=== PATIENT | male | born 1935 | race Caucasian/White ===

== ENCOUNTER 2018-12-21 20:02 | Inpatient (IN) | payer MEDICARE, OTHER ==
[~2018-12-21] VITALS: Ht 188 cm; Wt 96.3 kg
[2018-12-21] MEDS ORDERED: normal saline 1000ML IV soln IVB ONE (20:10)
[2018-12-21 20:47] LABS: CLARITY,URINE CLEAR (Clear); COLOR,URINE YELLOW (Yellow); GLUCOSE, URINE NEGATIVE (Neg); KETONES,URINE NEGATIVE (Neg); LEUKOCYTE ESTERASE ,URINE NEGATIVE (Neg); NITRITES, URINE NEGATIVE (Neg); OCCULT BLOOD,URINE NEGATIVE (Neg); PROTEIN,URINE NEGATIVE (Neg); UROBILINOGEN,URINE 0.2 E.U/dL (0.2-1.0)
[2018-12-21 20:48] LABS: UA COLLECTION TYPE CLN CATCH MIDSTREAM
[2018-12-21 20:53] LABS: URINE AMPHETAMINE SCREEN NEGATIVE (Neg); URINE BARBITUATE SCREEN NEGATIVE (Neg); URINE BENZODIAZEPINES SCREEN NEGATIVE (Neg); URINE CANNABINOID SCREEN NEGATIVE (Neg); URINE COCAINE SCREEN NEGATIVE (Neg); URINE METHADONE SCREEN NEGATIVE (Neg); URINE OPIATE SCREEN NEGATIVE (Neg); URINE PHENCYCLIDINE SCREEN NEGATIVE (Neg)
[2018-12-21 21:16] LABS: BASOPHILS % (AUTO) 0.5 % (0-1); EOSINOPHILS % (AUTO) 0.3 % (0-6); HEMATOCRIT 38.6 % (42.0-52.0); HEMOGLOBIN 12.8 g/dl (14.0-17.9); LYMPHOCYTES # (AUTO) 0.9 X10'3 (1.1-4.8); MEAN CORPUSCULAR HEMOGLOBIN 29.9 PG (27.0-31.0); MEAN CORPUSCULAR HGB CONC 33.2 g/dL (33.0-36.5); MEAN CORPUSCULAR VOLUME 90.2 FL (78-98); MONOCYTES # (AUTO) 0.5 X10'3 (0-0.9); MONOCYTES % (AUTO) 8.6 % (2-12); NEUTROPHILS # (AUTO) 4.8 X10'3 (1.8-7.7); NEUTROPHILS % (AUTO) 76.6 % (42-75); PLATELET COUNT 157 X10'3 (140-440); RED BLOOD COUNT 4.28 X10'6 (4.70-6.10); RED CELL DISTRIBUTION WIDTH 14.6 % (11.5-14.5); WHITE BLOOD COUNT 6.3 X10'3 (4.5-11.0)
[2018-12-21 21:24] LABS: AMMONIA < 10 UMOL/L (11-32)
[2018-12-21 21:27] LABS: LACTIC SEPSIS 1.7 MMOL/L (0.4-2.0); PROTHROMBIN TIME 10.4 SECONDS (9.0-12.0)
[2018-12-21 21:33] LABS: ALANINE AMINOTRANSFERASE 14 U/L (12-78); ALBUMIN 3.7 G/DL (3.4-5.0); ALBUMIN/GLOBULIN RATIO 1.1 (1.1-1.5); ANION GAP 9 (8-16); ASPARTATE AMINO TRANSFERASE 29 U/L (10-37); BILIRUBIN,TOTAL 0.6 MG/DL (0.1-1.0); BLOOD UREA NITROGEN 32 MG/DL (7-18); BUN/CREATININE RATIO 27.4 (5.4-32.0); CALCIUM 8.5 MG/DL (8.5-10.1); CHLORIDE 106 MMOL/L (99-107); CREATININE 1.17 MG/DL (0.60-1.10); ETHANOL < 0.010 GM/DL (0.0-0.010); GLUCOSE 95 MG/DL (70-104); POTASSIUM 4.2 MMOL/L (3.5-5.1); SODIUM 141 MMOL/L (135-145); TOTAL CARBON DIOXIDE 26.3 MMOL/L (24-32); TROPONIN I 0.04 NG/ML (0.0-0.05); eGFR 59 ML/MIN
[2018-12-21 21:39] LABS: ALKALINE PHOSPHATASE 77 IU/L (46-116)
[2018-12-21] MEDS ORDERED: ondansetron/PF 4mg/2ml inj IV PRN (21:50)
[2018-12-21] MEDS ORDERED: morphine 4 MG/ML inj SYRINge IV PRN ×2 (21:50)
[2018-12-21] MEDS ORDERED: magnesium hydroxide 30ml (MOM) UD suspension PO PRN (21:50)
[2018-12-21] MEDS ORDERED: acetaminophen 325mg tablet PO PRN ×2 (21:50)
[2018-12-21] MEDS ORDERED: mag hydrox/Alum hydrox/simeth 30ml oral suspension PO PRN (21:50)
[2018-12-21] MEDS: dextrose 5%-1/2 normal saline 1,000 ML IV SCH (22:36)
--- NOTE | 2018-12-21 22:55 | NUR ---
PATIENT ARRIVED ON UNIT VIA GURNEY. PATIENT AMBULATED TO BED. FLUIDS RUNNING. ON TELE. VITALS STABLE. PATIENT CONFUSED. DID NOT KNOW WHERE HE WAS AT OR HOW HE GOT HERE. BELONGINGS AT BEDSIDE.
[2018-12-21 23:45] VITALS: BP 132/82
--- NOTE | 2018-12-22 06:07 | NUR ---
PATIENT REPORT GIVEN TO ROSSY OROZCO.
[2018-12-22 06:10] VITALS: BP 121/69
--- NOTE | 2018-12-22 06:43 | NUR ---
I HAVE RECEIVED PATIENT REPORT FROM AKANKSHA Cruz RN
[2018-12-22] MEDS: dextrose 5%-1/2 normal saline 1,000 ML IV SCH (08:18)
[2018-12-22 09:16] LABS: ALBUMIN 3.4 G/DL (3.4-5.0); ANION GAP 5 (8-16); BLOOD UREA NITROGEN 23 MG/DL (7-18); BUN/CREATININE RATIO 20.5 (5.4-32.0); CALCIUM 8.4 MG/DL (8.5-10.1); CHLORIDE 105 MMOL/L (99-107); CREATININE 1.12 MG/DL (0.60-1.10); GLUCOSE 81 MG/DL (70-104); POTASSIUM 4.1 MMOL/L (3.5-5.1); SODIUM 139 MMOL/L (135-145); TOTAL CARBON DIOXIDE 29.1 MMOL/L (24-32); eGFR 62 ML/MIN
[2018-12-22 10:00] VITALS: BP 135/65
[2018-12-22] MEDS: Potassium Cl inj 20 MEQ in normal saline 1000ml 990 ML IV SCH (16:34)
[2018-12-22] MEDS: enoxaparin 40mg/0.4ml syringe SUBCUT SCH (16:48)
--- NOTE | 2018-12-22 17:00 | NUR ---
Student Medication Administration: For this medication-pass time frame, all medication were reviewed, dispensed, administered and documented per hospital policy by Renea Chu
[2018-12-22 18:00] VITALS: BP 139/70
--- NOTE | 2018-12-22 18:42 | NUR ---
PATIENT REPORT RECEIVED FROM ROSSY OROZCO.
--- NOTE | 2018-12-22 18:45 | NUR ---
I gave patient report to Ami Cruz RN
--- NOTE | 2018-12-22 18:48 | NUR ---
I found patient had walked to the bathroom on his own, he had taken the TABS alarm off and disconnected his iv at this time. I walked him back to his room and he stumbled and almost fell to the floor. I paged housekeeping and he is going to be moved to 4018 once the room is cleaned and placed on a bed alarm bed.
--- NOTE | 2018-12-22 20:19 | NUR ---
Patient moved to 4018 for safety and placed on bed alarm bed and 2 TABS alarms placed on him also. He has been orientated to his new room and all of his belongings moved with him.
[2018-12-22 22:00] VITALS: BP 124/73
[2018-12-23] MEDS: Potassium Cl inj 20 MEQ in normal saline 1000ml 990 ML IV SCH ×2 (05:43→08:56)
[2018-12-23 06:10] VITALS: BP 133/63
--- NOTE | 2018-12-23 06:10 | NUR ---
Patient in room ORTHO 4018. I have received report from Ami Cruz RN and had the opportunity to ask questions and assume patient care.
--- NOTE | 2018-12-23 06:26 | NUR ---
PATIENT REPORT GIVEN TO ROSSY OROZCO.
[2018-12-23 07:00] LABS: ALBUMIN 3.1 G/DL (3.4-5.0); ANION GAP 7 (8-16); BLOOD UREA NITROGEN 20 MG/DL (7-18); BUN/CREATININE RATIO 15.9 (5.4-32.0); CALCIUM 8.3 MG/DL (8.5-10.1); CHLORIDE 107 MMOL/L (99-107); CREATININE 1.26 MG/DL (0.60-1.10); GLUCOSE 85 MG/DL (70-104); POTASSIUM 4.1 MMOL/L (3.5-5.1); SODIUM 141 MMOL/L (135-145); TOTAL CARBON DIOXIDE 26.8 MMOL/L (24-32); eGFR 55 ML/MIN
[2018-12-23] MEDS: enoxaparin 40mg/0.4ml syringe SUBCUT SCH (08:56)
[2018-12-23 10:00] VITALS: BP 127/66
[2018-12-23] MEDS ORDERED: donepezil 5mg tablet PO SCH (15:55)
--- NOTE | 2018-12-23 18:00 | NUR ---
I arrived to the floor and discovered that patient is wanting to leave AMA and that security had been at pt's bedside for about an hour per the day staff. Patient does not have suicide precautions or a hold that would not allow him to leave on his own. I verified the 1798 order with the night nursing sulfuric acid plant supervisor; Memo last night and asked if that meant we had to have a sitter and I was told that patient is " gravely disabled " that is where the 1798 order is coming from. I called the day nursing sulfuric acid plant supervisor today to let her know what the situation was in regards to patient wanting to leave; and that security and staff during the day and at change of shift was unable to convince the patient to stay on the floor. I also informed Bebe that he had a 1798 order. Patient is already dressed and standing in the doorway wanting to leave now. Bebe OROZCO nursing sulfuric acid plant supervisor informed me that we can't hold patient against his will and that we have to let him leave but to call [employer] to inform them so they can meet him at hospital and bring him back through the ER for evaluation. I called [employer] and gave them the patient's pertinent information and what we needed done for patient's safety. The officer told me that he would send someone to hospital as soon as possible. Security walked the patient down to lobby around 1830 this evening and they were going to have him get his belongings on the way from front tender.
--- NOTE | 2018-12-23 18:39 | NUR ---
PATIENT REPORT RECEIVED FROM ROSSY OROZCO.
--- NOTE | 2018-12-23 18:39 | NUR ---
Patient report given to Ami Cruz RN. Patient left and is currently downstairs possibly with security or [employer].
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
[2018-12-24] MEDS ORDERED: NO HOME MEDS (10:24)
== END 2018-12-23 18:30 | disposition left against medical advice (07) | DRG 72 ==
LOC: ER 20:03 → ED HOLD 21:48 → EDBEDREQ 23:06 → ORTHO 4S 23:30 → OBSVTOIN 12-23 14:27
PROVIDERS: ADMIT Internal Medicine; ATTEND Internal Medicine
DX: G93.40 Encephalopathy, unspecified (principal); I35.0 Nonrheumatic aortic (valve) stenosis; F03.90 Unspecified dementia, unspecified severity, without behavioral disturbance, psychotic disturbance, mood disturbance, and anxiety; E78.5 Hyperlipidemia, unspecified; I10 Essential (primary) hypertension; E86.0 Dehydration; Z53.21 Procedure and treatment not carried out due to patient leaving prior to being seen by health care provider
CPT/HCPCS: 36415; 70450; 71045; 80048; 80053; 80305; 80320; 81003; 82140; 82948; 83605; 84439; 84443; 84484; 85025; 85610; 87040; 87070; 93005; 93306; 96360; 96361; 96372; 97116; 97161; 97530; 99285; G0378; J1650; J3480; J7030

== ENCOUNTER 2018-12-23 20:14 | Emergency (ER) | payer MEDICARE, OTHER ==
[~2018-12-23] VITALS: Ht 188 cm; Wt 100.0 kg
--- NOTE | 2018-12-23 22:19 | NUR ---
PT belongings inventoried. $100 bill found in wallet. Registration contacted for secure items lockup. Wallet placed in speciman bag with PT sticker and placed under wall safe in ED OF.
--- NOTE | 2018-12-23 22:45 | NUR ---
telepsych consult initiated
--- NOTE | 2018-12-23 22:53 | NUR ---
daughter number obtained from previous visit: [phone] Manuela Sweet, apparently she has not been answering the phone other info obtained to pass along: apparently in 2009, neuro consult has been done
--- NOTE | 2018-12-23 23:47 | NUR ---
Packet faxed to [facility].
--- NOTE | 2018-12-24 01:13 | NUR ---
Pt sitting up in bed, states that he is going to put his clothes on. Pt reoriented to time. Pt states that he didn't realize this and will go back to sleep now. No further requests or c/o.
--- NOTE | 2018-12-24 02:36 | NUR ---
PT valuables secured with registration. Reciept taped to PT binder.
--- NOTE | 2018-12-24 06:26 | NUR ---
Nursing Note: Pt laying in bed on R side, respirations even and unlabored, no S&S of distress.
[2018-12-24] MEDS ORDERED: haloperidol lactate 5mg/ml inj IM ONE (07:25)
[2018-12-24] MEDS ORDERED: LORazepam 2 mg/ml vial IM ONE (07:25)
[2018-12-24] MEDS ORDERED: diphenhydrAMINE 50 mg/ml inj IM ONE (07:25)
--- NOTE | 2018-12-24 08:08 | NUR ---
Nursing Note: Pt up wanting to leave asking for clothes. Repeatedly trying to go into other patients' areas. Pt redirected, but he was unwilling to return to bed. Pt stated that he does not want to talk to doctors. Pt refused to talk to telepsych Notified Dr. Eduardo, he evaluated pt and ordered medications. Security stood by while the pt willingly accepted the IM medications. Pt not sitting up to eat breakfast. Will continue to monitor.
--- NOTE | 2018-12-24 09:00 | NUR ---
Nursing Note: Telepsych report received, Dr. Eduardo ordered RPR, B12, and thiamine level labs on the patient. Will continue to monitor.
--- NOTE | 2018-12-24 10:01 | NUR ---
Nursing Note: Pt laying in bed on back sleeping, respirations even and unlabored, no S&S of distress, will continue to monitor.
[2018-12-24] MEDS ORDERED: NO HOME MEDS (10:24)
--- NOTE | 2018-12-24 11:11 | NUR ---
pt attempting to walk around, he has an unsteady gait, advised him to return to his bed. he was hesitant, security assisted in getting the pt back to bed.
--- NOTE | 2018-12-24 11:37 | NUR ---
Nursing Note: Pt laying in bed, respirations even and unlabored, no S&S of distress, will continue to monitor.
--- NOTE | 2018-12-24 14:01 | NUR ---
Nursing Note: Paged social contact worker that pt needs discharge plan. Pt unable to formulate a plan for food, clothing, [facility]. No family available. [facility] declined to place pt on 5150 hold. Will continue to monitor.
--- NOTE | 2018-12-24 15:54 | NUR ---
Nursing Note: Pt laying on R side, eyes closed, respirations even and unlabored, no S&S of distress, will continue to monitor.
--- NOTE | 2018-12-24 18:12 | NUR ---
Nursing Note: Pt laying on L side, eyes closed, respirations even and unlabored, no S&S of distress, will continue to monitor.
--- NOTE | 2018-12-24 20:04 | NUR ---
elopement censor placed on right ankle
--- NOTE | 2018-12-25 09:53 | NUR ---
Pt. woke up and ate breakfast.
--- NOTE | 2018-12-25 11:34 | NUR ---
Pt. lying in bed on right side. Respirations even and unlabored.
--- NOTE | 2018-12-25 17:53 | NUR ---
Hiren PARKER talking with pt. now.
--- NOTE | 2018-12-25 20:00 | NUR ---
PT expresses concern that he is going to . PT talks about how his is really not , but they are . Refers to hospital unit as "house" and says he "feels bad" about his impending .
--- NOTE | 2018-12-25 20:50 | NUR ---
pt denies sucidial ideation. pt denies homicidal ideation. pt denies hallucinations. pt denies hearing voices but says "only good voices" will continue to monitor.
[2018-12-25] MEDS ORDERED: haloperidol 1mg tablet PO PRN (22:50)
[2018-12-25] MEDS: LORazepam 0.5 MG tablet PO PRN (22:57)
--- NOTE | 2018-12-26 00:03 | NUR ---
pt laying to his right side. resting, eyes closed. no signs of distressed. even and unlabored breathing. will continue to monitor
--- NOTE | 2018-12-26 00:39 | NUR ---
Pt asleep left side. RR 13, even and unlabored. No apparent distress at this time. Hollis provided.
--- NOTE | 2018-12-26 02:11 | NUR ---
pt sleeping on his right side. no signs of distress. will continue to monitor.
--- NOTE | 2018-12-26 04:59 | NUR ---
pt resting, eyes closed. no signs of distress. unlabored and even breathing. will continue to monitor.
[2018-12-26] MEDS: LORazepam 0.5 MG tablet PO PRN (07:07)
--- NOTE | 2018-12-26 07:28 | NUR ---
Pt. wandering around in unit. Appears slightly agitated. Ativan given per MR order. Pt. took meds willingly.
--- NOTE | 2018-12-26 08:35 | NUR ---
Pt. was observed to stumble and fall, apparently hitting his head on the floor. Small pool of blood noted on floor. Abrasion noted to back of head. No LOC noted. Vital signs obtained after fall. VSS. Pt. was thought to stuble and get caught on curtain that divides the beds. Abrasion noted to right middle knuckle. ER director and Dr. Horne notified. Pt. assisted to wheelchair. Will continue to monitor. Awaiting orders from Dr. Horne.
--- NOTE | 2018-12-26 08:55 | NUR ---
Dr. Horne here to assess pt. Orders received. Security camera footage reviewed. Pt. was seen standing at bedside, drinking coffee before stumbling into curtain and patient's bedside table and eventually falling onto ground, striking his head at 8:24:54 am.
[2018-12-26] MEDS ORDERED: TETanus/Pertussis (Acell)/Diphther VAC/PF (Tdap-Adult) 0.5ml syringe IM ONE (09:00)
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
--- NOTE | 2018-12-26 10:08 | NUR ---
Pt. attempting to get OOB despite staff constantly reminding pt. to stay in bed.
--- NOTE | 2018-12-26 10:13 | NUR ---
Pressure dressing applied to back of head wound as wound is oozing onto pillow case. Pt. given urinal to use.
--- NOTE | 2018-12-26 12:30 | NUR ---
Sitter at bedside.
--- NOTE | 2018-12-26 13:07 | NUR ---
Pt. has 1:1 sitter since pt. fell earlier this shift.
--- NOTE | 2018-12-26 17:10 | NUR ---
Pt. becoming agitated and combative. Refusing to stay in bed. Medicated with Haldol PO.
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
--- NOTE | 2018-12-26 19:30 | NUR ---
Patient is very anxious and parinoid, had a fall today and has a laceration to back of head. He is unsteady on his feet and won't follow direction. He becomes very aggitated when directed and has the potential to become violent. Per Dr. Walker he will order Geodon 10mg IM now.
[2018-12-26] MEDS ORDERED: ziprasidone IM 20mg inj **IM only IM ONE (19:50)
--- NOTE | 2018-12-26 20:04 | NUR ---
Patient was given Geodon 10mg, security at bedside for noncompliance.
[2018-12-27 07:14] LABS: RPR Non Reactive (Non Reactive)
--- NOTE | 2018-12-27 18:50 | NUR ---
GAVE REPORT TO PAM FRANCO
--- NOTE | 2018-12-27 19:58 | NUR ---
PATIENT RESTING IN BED. LIGHTS OFF. PATIENT HAS AMBULATED TO AND FROM BATHROOM TWICE IN THE PAST HOUR. PATIENT HAVING DELUSIONS REGARDING WHERE HE CURRENTLY IS.
--- NOTE | 2018-12-27 20:40 | NUR ---
Patient resting in bed. Patient has ambulated to bathroom twice in last hour. Patient is confused regarding where he is.
--- NOTE | 2018-12-27 23:17 | NUR ---
Patient sleeping in bed. No new concerns or needs at this time. Will continue to monitor.
--- NOTE | 2018-12-28 01:02 | NUR ---
Patient sleeping. No needs or concerns at this time. Will continue to monitor.
--- NOTE | 2018-12-28 02:48 | NUR ---
Patient sleeping. No changes.
--- NOTE | 2018-12-28 05:16 | NUR ---
Patient sleeping. No changes.
--- NOTE | 2018-12-28 08:19 | NUR ---
PT SITTING UP AT BEDSIDE EATING BREAKFAST NOW.
[2018-12-28] MEDS: LORazepam 0.5 MG tablet PO PRN ×2 (09:08→17:29)
[2018-12-28] MEDS: ziprasidone IM 20mg inj **IM only IM PRN (09:08)
--- NOTE | 2018-12-28 09:50 | NUR ---
PT WAS WALKING AROUND WITH STEADY GAIT PT WAS GOING TO RESTRICTED AREA SO REDIRECTED PT TO RETURN TO BED, PT WAS AGREEABLE TO REQUEST AND RETURN TO BED.
--- NOTE | 2018-12-28 12:36 | NUR ---
RELIEVING RN FOR LUNCH, PT IS RESTING QUIETLY ON BED, AWAKE, CALM AND COOPERATIVE
--- NOTE | 2018-12-28 12:52 | NUR ---
PT AMB WITH SLIGHTLY UNSTEADY GAIT TO RESTROOM, DIRECTOR TRANSLATIONAL ASSISTED PT WITH WALKER
[2018-12-28] MEDS ORDERED: ibuprofen tablet 400 MG TABLET PO PRN (14:00)
--- NOTE | 2018-12-28 15:10 | NUR ---
BRYAN PROVIDING FOOT CARE, GIVING PT BED BATH, TRIMMED PT HAIR AND TRIMMED PT TOENAILS, PT ALSO PLACED IN NEW ED GREEN SCRUBS.
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
--- NOTE | 2018-12-28 16:51 | NUR ---
[facility] WILL FAX CHART OVER TO [facility] THEY WILL START AND INVESTIGATION AND WILL NEED PROVIDER TO GIVE RESULTS OF MENTAL STATUS EXAM, THIS SHOULD HAVE BEEN COMPLETED ALREADY BY ED PROVIDER DURING EVALUATION AND PT ALSO HAD NEURO EVAL BY TELEPSYCH DOCTOR.
--- NOTE | 2018-12-28 17:25 | NUR ---
PT IS UP PACING AROUND ROOM, MAKING BED, PT HAS BEEN REDIRECTED BACK TO BED NUMEROUS TIMES BUT PT CONTINES TO PACE, SPOKE WITH DR METZ RECEIVED VERBAL ORDER FRO GEODON 20MG BID SCHEDULED.
[2018-12-28] MEDS: ziprasidone 20mg capsule PO SCH (17:31)
--- NOTE | 2018-12-28 18:34 | NUR ---
Patient is A&O x2, MCKEON and is pleasantly confused. He is sitting in chair eating dinner w/o problem. I will continue to monitor.
[2018-12-28] MEDS ORDERED: ziprasidone 20mg capsule PO SCH (20:00)
[2018-12-29] MEDS: ziprasidone 20mg capsule PO SCH ×2 (07:58→20:28)
--- NOTE | 2018-12-29 18:04 | NUR ---
report given to jay medrano
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
--- NOTE | 2018-12-29 20:48 | NUR ---
The patient is resting on his bed. He took his HS medications with a snack. He is pleasantly confused
--- NOTE | 2018-12-29 23:00 | NUR ---
The patient is awake and up at the station and is pleasantly confused
--- NOTE | 2018-12-30 00:59 | NUR ---
The patient appears to be asleep at this time
--- NOTE | 2018-12-30 04:45 | NUR ---
The patient appears to be asleep at this time
--- NOTE | 2018-12-30 06:35 | NUR ---
Pt sleeping on his left side, RR even and unlabored.
--- NOTE | 2018-12-30 08:33 | NUR ---
Pt up took his medications; ate his breakfast. He is calm and cooperative following directions.
[2018-12-30] MEDS: ziprasidone 20mg capsule PO SCH ×2 (08:57→20:08)
--- NOTE | 2018-12-30 10:28 | NUR ---
Pt given a writing pad and rubber pencil for something to do. He is now sitting on the side of his bed writing on the writing pad. Pt ambulates to the BR independently. He is calm and cooperative w/staff.
--- NOTE | 2018-12-30 12:01 | NUR ---
Pt sitting on the side of the bed appears to be writing on the tablet given to him by staff. He denies complaints.
--- NOTE | 2018-12-30 14:00 | NUR ---
Pt resting on the bed on his right side with his eyes closed. RR even and unlabored.
--- NOTE | 2018-12-30 15:03 | NUR ---
SS found an individual w/same name as pt's daughter- Manuela Sweet on the [facility] (W[facility]) participant's list. SS contacted Ms. Sweet's WP-SW and left requesting a rt p/c to determine if this is indeed pt's daughter. RN in ED informed. PG referral faxed. Addendum: 12/30/18 at 1506 by Brittany Mccann Amended: Links added.
--- NOTE | 2018-12-30 16:07 | NUR ---
Pt standing at the side of the bed rocking from side to side with a smile on his face. Pt encouraged to join staff and talk with us.
--- NOTE | 2018-12-30 17:36 | NUR ---
Pt given bed bath and scrubs changed. Pt returned to bedside. Encouraged to drink water.
--- NOTE | 2018-12-30 19:01 | NUR ---
PATIENT AWAKE UP FIXING HIS BED LINENS.
--- NOTE | 2018-12-30 20:08 | NUR ---
MEDICATION GIVEN AT THIS TIME.
--- NOTE | 2018-12-30 21:32 | NUR ---
PATIENT RESTING IN BED.
--- NOTE | 2018-12-30 23:00 | NUR ---
PATIENT RESTING IN BED.
--- NOTE | 2018-12-31 00:30 | NUR ---
PATIENT AWAKEN LOOKING FOR HER DAUGHTER, EASILY REDIRECTED TO GO BACK TO BED.
--- NOTE | 2018-12-31 02:00 | NUR ---
RESTING IN BED WITH EYES CLOSED.
--- NOTE | 2018-12-31 05:09 | NUR ---
VITAL SIGNS TAKEN.
--- NOTE | 2018-12-31 06:28 | NUR ---
PATIENT REPORT GIVEN TO JHONNY OROZCO.
--- NOTE | 2018-12-31 06:57 | NUR ---
Patient awake, pleasant, assisted to bathroom and back to bed, no fixing bed linens, will continue to monitor.
--- NOTE | 2018-12-31 08:30 | NUR ---
Patient sitting up in bed, eating breakfast, patient pleasant, no distress, will continue to monitor.
[2018-12-31] MEDS: ziprasidone 20mg capsule PO SCH ×2 (08:46→20:50)
--- NOTE | 2018-12-31 09:40 | NUR ---
Patient up, fixing his bedding, no signs of distress-will continue to monitor.
--- NOTE | 2018-12-31 10:29 | NUR ---
Patient up and wandering towards [facility], pt states "I'm looking for the bathroom"- redirected and assisted to the bathroom.
--- NOTE | 2018-12-31 10:57 | NUR ---
Patient up, wandering and states he "needs to get back to work." Redirected patient to his bed, pt pleasant and cooperative.
--- NOTE | 2018-12-31 11:45 | NUR ---
Patient became increasingly agitated, security called when patient attempting to leave into restricted area and when unwilling to come back with prompts. Patient standing up, making attempts to leave. Security and RN present. Patient unwilling to sit down, and states he "needs to leave to go to work" and yelling "HELP" when we asked him to stay in area. Pt states "you all are trying to kill me" JOSE LUIS Martin given per MD order.
[2018-12-31] MEDS: ziprasidone IM 20mg inj **IM only IM PRN (11:56)
--- NOTE | 2018-12-31 12:03 | NUR ---
Patient now sitting down, appears more calm, security standing by. will continue to monitor pt behavior.
--- NOTE | 2018-12-31 12:29 | NUR ---
Assisted patient back to bed with help from computer systems security administrator, patient now resting in bed, respirations even, unlabored, appears calm, no distress at this time.
--- NOTE | 2018-12-31 13:46 | NUR ---
Patient sleeping on back with arms across his chest, respirations even and unlabored. will continue to monitor.
--- NOTE | 2018-12-31 14:31 | NUR ---
Patient awake, sitting up in bed eating lunch. patient appears calm, in no distress, will continue to monitor.
--- NOTE | 2018-12-31 15:33 | NUR ---
Patient sitting up in bed, asleep, respirations even and unlabored. no distress noted
--- NOTE | 2018-12-31 17:07 | NUR ---
Patient sleeping, sitting up in bed, breathing unlabored, will continue to monitor.
--- NOTE | 2018-12-31 18:45 | NUR ---
Pt lying in bed on his back, eyes closed, respirations even and unlabored.
--- NOTE | 2018-12-31 19:00 | NUR ---
Pt ate his dinner. Pt now lying in bed on his back, appears to be sleeping. Respirations even and unlabored.
--- NOTE | 2018-12-31 20:15 | NUR ---
Pt appears to be sleeping; eyes closed, but foot moving. No requests or complains at this time.
--- NOTE | 2018-12-31 21:15 | NUR ---
Pt took medication as ordered. Pt cooperative and appropriate. Pt used urinal at bedside independantly.
--- NOTE | 2018-12-31 22:30 | NUR ---
Pt appears to be sleeping in bed on his back. Respirations even and unlabored.
--- NOTE | 2018-12-31 23:40 | NUR ---
Pt sleepin on his back. Respiratons even and unlabored.
--- NOTE | 2019-01-01 00:25 | NUR ---
Pt speaking quietly and appropriately to Preston FAIR, who met his needs at this time.
--- NOTE | 2019-01-01 01:32 | NUR ---
Pt sleeping quietly in bed, respirations even and unlabored.
[2019-01-01] MEDS: LORazepam 0.5 MG tablet PO PRN ×2 (01:47→03:30)
--- NOTE | 2019-01-01 02:32 | NUR ---
Pt walked to nurses station and spoke to PCT. Pt speech somewhat garbled. Pt was led back to bed and given 1 mg Ativan. Pt currently resting.
--- NOTE | 2019-01-01 03:30 | NUR ---
Pt restless, up and down out of bed, straightening his blankets, using the urinal. Pt redirected multiple times with short term effectiveness.
--- NOTE | 2019-01-01 04:58 | NUR ---
PT is restless and continues to attempt to stand. Unsteady on feet, verbal redirection less effective than previous interactions. Bed lowered and PT given stack of washcloths to fold to keep PT occupied.
--- NOTE | 2019-01-01 06:13 | NUR ---
PT AMBULATED WITH ASSISTANCE TO THE BATHROOM. PT NOTED TO BE UNSTEADY ON HIS FEET. PT GIVEN WALKER FOR STABILITY WHEN AMBULATING AND FALL RISK BAND PLACED ON HIS RIGHT WRIST. PT ALSO WEARING NON SKID SOCKS AND IS IN A POSITION FOR DIRECT OBSERVATION FROM NURSING STATION.
[2019-01-01] MEDS: ziprasidone 20mg capsule PO SCH ×2 (08:10→20:20)
--- NOTE | 2019-01-01 09:53 | NUR ---
PT IS UP TRYING TO WALK AROUND, HE IS REDIRECTED BY STAFF, TO AVOID FALL
--- NOTE | 2019-01-01 11:12 | NUR ---
PT IS LAYING SUPINE IN BED, EYES CLOSED, APPEARS TO BE ASLEEP. NO S.S OF DISTRESS
--- NOTE | 2019-01-01 12:04 | NUR ---
PT IS IN BED SUPINE, JUST STRETCHED, NO S/S OF DISTRESS NOTED, WILL CONTINUE TO MONITOR
--- NOTE | 2019-01-01 12:20 | NUR ---
PT IS IN BED ON RIGHT SIDE, NO S/S OF AGITATION OBSERVED
--- NOTE | 2019-01-01 13:49 | NUR ---
PT IS SITTING AT BEDSIDE EATING LUNCH
--- NOTE | 2019-01-01 15:08 | NUR ---
PT IS SUPINE IN BED, HE IS AWAKE, NO S/S OF DISTRESS OBSERVED
--- NOTE | 2019-01-01 15:54 | NUR ---
PT IS SUPINE IN BED, EYES CLOSED, NO S/S OF DISTRESS OBSERVED
--- NOTE | 2019-01-01 17:10 | NUR ---
PT WAS GETTING AGITATED, HE WAS GIVEN WASHCLOTHS TO FOLD, HE IS HAPPILY FOLDING WASH CLOTHS RIGHT NOW
--- NOTE | 2019-01-01 18:08 | NUR ---
PT IS STANDING AT THE NURSES STATION, TALKING CALMLY WITH STAFF, MUCH OF CONVERSATION IF NONSENSICAL
--- NOTE | 2019-01-01 19:10 | NUR ---
PT IS MAKING HIS BED, NO DISTRESS OBSERVED
--- NOTE | 2019-01-01 21:59 | NUR ---
PT IS RESTING COMFORTABLY, NO S/S OF ANY DISTRESS.
--- NOTE | 2019-01-02 01:21 | NUR ---
NO NEEDS AT THIS TIME. PT RESTING COMFORTABLY. RESPIRATIONS EVEN AND UNLABORED. NO S/S OF DISTRESS.
--- NOTE | 2019-01-02 05:33 | NUR ---
NO NEEDS AT THIS TIME. PT RESTING COMFORTABLY. RESPIRATIONS EVEN AND UNLABORED. NO S/S OF DISTRESS.
[2019-01-02] MEDS: ziprasidone 20mg capsule PO SCH ×2 (08:04→20:22)
--- NOTE | 2019-01-02 18:22 | NUR ---
gave report to mitchell garcia
--- NOTE | 2019-01-02 18:28 | NUR ---
Recieved report from Latonya OROZCO, sat up to eat dinner, will continue to monitor.
--- NOTE | 2019-01-03 00:36 | NUR ---
Covering for RN Lunch break: Patient is resting in bed with eyes closed. Resp are even and unlabored. Appearing to sleep comfortably without concerns or issues noted. Will continue to monitor.
--- NOTE | 2019-01-03 00:57 | NUR ---
Awake, standing at foot of bed, some disorientation, though easily redirected.
[2019-01-03] MEDS: ziprasidone 20mg capsule PO SCH ×2 (09:16→20:24)
[2019-01-03] MEDS: ziprasidone IM 20mg inj **IM only IM PRN (14:06)
--- NOTE | 2019-01-04 01:22 | NUR ---
Patient awake in bed, no needs voiced at this time. 16 even and unlabored respirations.
--- NOTE | 2019-01-04 06:30 | NUR ---
Awake upon change of shift observation. Smiled at staff. Unable to answer any mental status questions: date of , where he lived, where he was at presently. Arm band placed on wrist. Patient stated "Am I in a concentration camp?" Again informed he was in a hospital.
--- NOTE | 2019-01-04 08:30 | NUR ---
Served breakfast. Ate 100% of his meal. Attempting to put a large drinking straw into his juice box. Assisted with meal. Asked for salt and pepper on his food. "It has no taste."
[2019-01-04] MEDS: ziprasidone 20mg capsule PO SCH ×2 (08:56→20:43)
--- NOTE | 2019-01-04 10:30 | NUR ---
Sleeping on his right side at this time. Color and breathing WNL.
--- NOTE | 2019-01-04 12:25 | NUR ---
Remains asleep. Breathing and color WNL
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
--- NOTE | 2019-01-04 16:22 | NUR ---
Sleeping on left side at this time. Appears comfortable.
--- NOTE | 2019-01-04 16:57 | NUR ---
Grandson Rodríguez Sweet and his at bedside visiting patient. Patient's family attempting to locate patient's car. Patient interacting with family though unable to provide them with information about his car.
--- NOTE | 2019-01-04 17:29 | NUR ---
Abbi Arreguin given keys to patient's car and a copy of police report to retrieve patient's car from [facility].
--- NOTE | 2019-01-04 17:58 | NUR ---
Patient's full address per grandson [address] [place] [address] Abbi Arreguin's Number:
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
--- NOTE | 2019-01-04 20:32 | NUR ---
The patient has been resting on his bed after eating 100% of his dinner. He is pleasantly confused.
--- NOTE | 2019-01-04 21:34 | NUR ---
The patient is resting on his bed but awake
--- NOTE | 2019-01-04 23:18 | NUR ---
The patient appears to be asleep at this time.
--- NOTE | 2019-01-05 00:52 | NUR ---
The patient appears to be asleep at this time
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
--- NOTE | 2019-01-05 05:04 | NUR ---
The patient appears to be asleep at this time
[2019-01-05] MEDS: ziprasidone 20mg capsule PO SCH ×2 (08:10→19:16)
--- NOTE | 2019-01-05 12:42 | NUR ---
relieving RN for lunch, pt is sitting on edge of bed drinking water, pt is calm and cooperative
--- NOTE | 2019-01-05 15:09 | NUR ---
Grandson came to ER but did not come to see patient. He left his number and that of his as contact . Rodríguez [phone] Nupur marie [phone]
--- NOTE | 2019-01-05 15:22 | NUR ---
Grandson [phone] brothers marie [phone]
--- NOTE | 2019-01-05 20:00 | NUR ---
The patient has been up on the unit. He ate 100 % of his dinner. He was given clean scrubs. He is pleasantly confused. He asks about his Annalise who has been for approximately 10 years.
--- NOTE | 2019-01-05 20:50 | NUR ---
The patient appears to be asleep at this time.
--- NOTE | 2019-01-05 22:54 | NUR ---
The patient has been restless but now appears to be asleep. He is disoriented and confused.
--- NOTE | 2019-01-06 02:02 | NUR ---
The patient appears to be asleep at this time
--- NOTE | 2019-01-06 03:50 | NUR ---
The patient is asleep at this time
--- NOTE | 2019-01-06 05:36 | NUR ---
The patient is awake and sitting on his bed.
--- NOTE | 2019-01-06 06:41 | NUR ---
Patient sitting at the edge of his bed since RN arrived at 0600. No distress observed. PAM Escobedo gave report that patient is not sleeping well. RN will request Trazodone from Dr. Aparicio for tonight. Continue to monitor.
--- NOTE | 2019-01-06 07:26 | NUR ---
Patient getting cleaned up with the assistance of Trish Andrade. Pt is social and appears to enjoy the interaction. Lupe also brought patient recliner to sit in. Patient appears comfortable. Continue to monitor.
[2019-01-06] MEDS: ziprasidone 20mg capsule PO SCH ×2 (08:32→20:11)
--- NOTE | 2019-01-06 08:55 | NUR ---
Patient needed encouragement to eat the breakfast in front of him. Once patient started eating, he ate everything. No distress observed. Continue to monitor.
--- NOTE | 2019-01-06 10:32 | NUR ---
Patient folded wash clothes and is tinkering in his room. No distress observed. Continue to monitor.
--- NOTE | 2019-01-06 12:10 | NUR ---
Patient sleeping in his chair. Patient had a difficult time and was restless last night. Continue to monitor.
[2019-01-06] MEDS ORDERED: traZODone 50mg tablet PO PRN (13:50)
--- NOTE | 2019-01-06 13:55 | NUR ---
Patient awoke and ate lunch. No distress observed. Continue to monitor.
--- NOTE | 2019-01-06 16:05 | NUR ---
Patient awake and walking and talking. No distress observed. Continue to monitor.
--- NOTE | 2019-01-06 17:49 | NUR ---
[id number]-nde came to p/u probate paperwork and visited patient for a little while. Patient appears to be enjoying interaction. Continue to monitor.
--- NOTE | 2019-01-06 19:37 | NUR ---
Pt sitting awake in recliner after eating dinner. No distress observed. Continue to monitor.
[2019-01-06] MEDS: traZODone 50mg tablet PO SCH (20:12)
--- NOTE | 2019-01-06 21:50 | NUR ---
Patient sleeping supine. No restlessness observed. Continue to monitor.
--- NOTE | 2019-01-06 23:45 | NUR ---
Patient up and ambulatory to BR, steady gait. Then patient back to bed. No distress observed. Continue to monitor.
--- NOTE | 2019-01-07 02:55 | NUR ---
Patient sleeping on left side. No restlessness observed. Continue to monitor.
--- NOTE | 2019-01-07 04:20 | NUR ---
Patient up and ambulatory to BR, steady gait, but Mir walked with patient. Patient then back to bed and laying on right side sleeping. Continue to monitor.
--- NOTE | 2019-01-07 05:11 | NUR ---
Patient continues to sleep on right side. No restlessness observed. Continue to monitor.
--- NOTE | 2019-01-07 06:41 | NUR ---
Patient asleep on right side, respirations even, unlabored, no distress. will continue to monitor.
--- NOTE | 2019-01-07 07:58 | NUR ---
Patient awake and pleasant this am, states "you all do such a nice job here" patient ready for breakfast, no distress.
[2019-01-07] MEDS: ziprasidone 20mg capsule PO SCH ×2 (08:09→20:19)
--- NOTE | 2019-01-07 09:02 | NUR ---
Patient up, rearranging bed linens, finished 100% of his breakfast. will continue to monitor.
--- NOTE | 2019-01-07 09:45 | NUR ---
Patient ambulating to bathroom independently, gait is steady.
--- NOTE | 2019-01-07 09:58 | NUR ---
patient ambulated steadily back to room, sitting up in chair next to bed- no distress; will continue to monitor.
--- NOTE | 2019-01-07 10:45 | NUR ---
Patient sitting up in chair, folding towel. no signs of distress at this time. will continue to monitor.
--- NOTE | 2019-01-07 11:40 | NUR ---
Patient sitting in chair next to bed drawing, no signs of distress, respirations even and unlabored.
--- NOTE | 2019-01-07 13:00 | NUR ---
Patient sitting up, eating lunch, waves to nurse's station, calm affect, no signs of distress. will continue to monitor.
--- NOTE | 2019-01-07 14:18 | NUR ---
Patient sitting up in bed, moving blankets over his feet. no distress. pt calm and pleasant.
--- NOTE | 2019-01-07 15:00 | NUR ---
Patient's grandson and granddaughter here to visit, inquiring options to gain conservertorship. patient [id number] continue to monitor.
--- NOTE | 2019-01-07 16:07 | NUR ---
Patient sitting up in his chair, eating snack given by staff, no signs of distress will continue to monitor.
--- NOTE | 2019-01-07 17:23 | NUR ---
Patient asleep, respirations even and unlabored. no distress noted.
--- NOTE | 2019-01-07 19:50 | NUR ---
Pt sitting quietly in his chair, manipulating an empty cookie container. Pt quiet and relaxed.
[2019-01-07] MEDS: traZODone 50mg tablet PO SCH (20:21)
--- NOTE | 2019-01-07 21:50 | NUR ---
Pt given medications. Pt became confused and poured water over his pills. Pills were placed in applesauce and pt supervised to ensure that both pills were swallowed. Pt cooperative and friendly but clearly confused. Charge nurse notified that pt should be provided with a shower and some type of recreation or stimulus if stay is to become protracted.
--- NOTE | 2019-01-08 00:30 | NUR ---
Pt sleeping quietly in his bed. Respirations even and unlabored. No distress noted
--- NOTE | 2019-01-08 03:30 | NUR ---
Pt sleeping quietly in his bed. Respirations even and unlabored. No distress noted
[2019-01-08] MEDS: ziprasidone 20mg capsule PO SCH ×2 (09:02→20:39)
--- NOTE | 2019-01-08 16:35 | NUR ---
Richard Camargo contact number [phone]
[2019-01-08] MEDS: traZODone 50mg tablet PO SCH (20:39)
--- NOTE | 2019-01-08 23:16 | NUR ---
Pt asleep on right side. RR 14, even and unlabored. No apparent distress at this time.
--- NOTE | 2019-01-09 00:43 | NUR ---
Up to bathroom, returned readily to bed.
--- NOTE | 2019-01-09 02:12 | NUR ---
Pt asleep on back. RR 13, even and unlabored. No apparent distress @ this time.
--- NOTE | 2019-01-09 04:15 | NUR ---
Pt asleep on right side. RR 13, even and unlabored. No apparent distress at this time.
--- NOTE | 2019-01-09 07:10 | NUR ---
Patient resting in bed with eyes closed; respirations normal
[2019-01-09] MEDS: ziprasidone 20mg capsule PO SCH ×2 (11:56→20:40)
--- NOTE | 2019-01-09 14:05 | NUR ---
family and social work coordinator at bedside. family working on becoming conservatorship for pt.
--- NOTE | 2019-01-09 16:11 | NUR ---
SS met w/pt & grandson, [id number], pt's alert & oriented to person, place, purpose of SS visit, pt states, "you need to talk to me about who I trust to make important decisions for me, I trust my grandson & grand-dtr here." SS engaged pt & family in discussion re identification of healthcare decision maker for pt, pt indicated that if he can no longer make his own decisions, "I trust my grandson to do that for me", grandson agreeable to this. With re to end of life measures, pt verbalized that if there's hope of saving his life, pt would want to be saved. However, when asked about long-term reliance on artificial/mechanical measures to sustain his life, pt deferred to his grandson, "Aurelio will decide for me if it came to that." Pt was attentive as SS asked questions to complete an ADR, pt asked for clarification when he did not hear the questions or need examples of situations. Pt signed the ADR identifying his grandson, Rodríguez Sweet and his healthcare agent. Family requested assistance in obtaining POA over pt's finances so they can help pt pay his bills and find a placement for him. SS referred family to contact a mobile notary to assist them in this. Pt did verbalize that he would like for his grandson to take care of his past due bills and current bills as well as help get him out of the ER. Family was able to have a mobile publications inspector come to the ER to assist w/the Durable POA. SS will continue to engage w/family to facilitate & support a safe dcp for pt. Addendum: 01/09/19 at 1630 by Brittany Mccann SS Amended: Links added.
[2019-01-09] MEDS: traZODone 50mg tablet PO SCH (20:40)
--- NOTE | 2019-01-09 22:59 | NUR ---
patient up to the restroom with assistance.
--- NOTE | 2019-01-10 02:35 | NUR ---
patient up to restroom
--- NOTE | 2019-01-10 05:30 | NUR ---
pt resting comfortably on right hip. will continue to monitor.
--- NOTE | 2019-01-10 06:30 | NUR ---
Asleep upon change of shift obsevation. Color and breathing WNL. Undisturbed at this time.
--- NOTE | 2019-01-10 07:45 | NUR ---
Page sent to [employer] inquiring about patient's disposition progress via hospital internet.
--- NOTE | 2019-01-10 08:10 | NUR ---
Call received from Brittany [employer] stating patient had signed paperwork designating grandson power of finance attorney. Grandson had determined patient has funds in the bank to support a detention facility placement. Grandson will pursue obtaining plaacement for patient in conjunction with [employer].
--- NOTE | 2019-01-10 09:00 | NUR ---
Ate 100% of his breakfast. Medication administered without event. Patient smiling and thanking staff "for their good service."
--- NOTE | 2019-01-10 09:30 | NUR ---
Escorted to the shower room by security. Cooperative with the process. Afterward given electric razor to shave. Patient did well shaving self. Given a snack. Ate 100% of his food.
[2019-01-10] MEDS: ziprasidone 20mg capsule PO SCH ×2 (09:33→20:50)
--- NOTE | 2019-01-10 17:08 | NUR ---
Sat in his lounge chair for greater part of the morning, keeping himself busy with hygiene or moving his belongings about the room. In good spirits when approached by staff. Smiles and nods. Unable to participate in mental status exam. Ate well for lunch. Asked for additional food. Given soup and crackers. Put self to bed at 1400. Sleeping at this time.
[2019-01-10] MEDS: traZODone 50mg tablet PO SCH (20:50)
--- NOTE | 2019-01-10 20:58 | NUR ---
pt given scheduled medication and a cup of ice water, pt tolerated well.
--- NOTE | 2019-01-10 23:20 | NUR ---
pt ambulated to restroom and back in bed on a steady gait, sitter in line of sight.
--- NOTE | 2019-01-11 05:27 | NUR ---
pt asleep.resp even and unlabored, sitter in line of sight.
--- NOTE | 2019-01-11 07:39 | NUR ---
Awake at this time. Laying in bed and staring at the ceiling. Approached by staff. Smiled and said "Good morning." Asked if he knew where he was, patient said "I'm in the hospital, somewhere." When asked if he knew why he was in the hospital, stated "I've have to think about that. 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 Me and the built a house. I left it to my grandson Rodríguez, along with a small fortune. The went off with the three kids. Don't know what happened there. I think my youngest of AIDS."
--- NOTE | 2019-01-11 08:30 | NUR ---
Served breakfast. Ate his meal independently. Accepted his medication without event. Continues to smile at staff and say thank you when assisted by staff.
[2019-01-11] MEDS: ziprasidone 20mg capsule PO SCH ×2 (08:35→20:16)
--- NOTE | 2019-01-11 09:40 | NUR ---
Patient's feet noted to be dry and cracked. Feet soaked in warm soapy water. Afterwards, lotion massaged into feet to decrease dryness. Patient accepted care with delight.
--- NOTE | 2019-01-11 11:30 | NUR ---
Chelsea Arreguin here to visit. Sat at bedside of patient while patient sat in his lounge chair. Patient spoke without stopping to grandson. Content reflected loose associations and tangential thinking. Patient heard to be discussing his theories about alligators. Grandson listened without interrupting. After thirty minutes, chelsea said goodbye and left.
--- NOTE | 2019-01-11 13:30 | NUR ---
Served lunch. Ate 100% of his meal. Afterwards, collected his tub and towel and said "I'll be seeing you all now. I'll be getting on home." Redirected back to his bed without difficulty.
--- NOTE | 2019-01-11 15:42 | NUR ---
Sat beside nurse's station in a chair to provide a change in his daily routine as patient has been in the hospital since 12/23/18. After a while, patient got up and put himself to bed.
--- NOTE | 2019-01-11 19:36 | NUR ---
Patient resting comfortably in bed and is arranging his belongings. Patient is pleasant and updated on POC.
[2019-01-11] MEDS: traZODone 50mg tablet PO SCH (20:16)
--- NOTE | 2019-01-11 21:16 | NUR ---
Patient is sleeping comfortably in a supine position.
--- NOTE | 2019-01-11 22:11 | NUR ---
Patient up twice over the last hour stating that he needs to go home. Patient is now currently laying supine with his eyes closed.
--- NOTE | 2019-01-11 23:11 | NUR ---
Patient has been sitting upright for the last hour. He got up to the restroom and is now laying supine with his eyes closed.
--- NOTE | 2019-01-12 00:24 | NUR ---
Patient sleeping comfortably in bed in a supine position.
--- NOTE | 2019-01-12 02:51 | NUR ---
Patient sleeping supine with even, unlabored breathing.
--- NOTE | 2019-01-12 07:25 | NUR ---
Pt sleeping RR even and unlabored
[2019-01-12] MEDS: ziprasidone 20mg capsule PO SCH ×2 (08:52→20:26)
--- NOTE | 2019-01-12 09:25 | NUR ---
Pt up sitting in a chair at his bedside. ADL's complete. Linen's changed.
--- NOTE | 2019-01-12 11:15 | NUR ---
Pt walking around near his bed and rearranging things on his bedside table.
--- NOTE | 2019-01-12 13:22 | NUR ---
Pt has been sitting at his bedside putting lotion on his hands and brushing his hair. He is calm and cooperative and follows directions well. Pt shared that he is estranged from his "surviving daughter" that he does not prefer to talk to her but does not mind if someone else talks to her. No contact w/his daughter this shift.
--- NOTE | 2019-01-12 15:10 | NUR ---
Pt laying on his bed with his eyes closed. RR even and unlabored.
--- NOTE | 2019-01-12 18:33 | NUR ---
Pt sitting in his chair smiling. He is calm and cooperativve w/staff.
[2019-01-12] MEDS: traZODone 50mg tablet PO SCH (20:26)
--- NOTE | 2019-01-13 03:43 | NUR ---
PT AMBULATORY TO RESTROOM AND BACK TO BED. NO FURTHER NEEDS NOTED AT THIS TIME. WILL CONTINUE TO MONITOR.
--- NOTE | 2019-01-13 08:28 | NUR ---
The patient is still sleeping. No distress
[2019-01-13] MEDS: ziprasidone 20mg capsule PO SCH ×2 (08:55→20:18)
--- NOTE | 2019-01-13 10:59 | NUR ---
The patient is up to bathroom and ate 100% of breakfast. He is up to chair alongside bed sitting calmly and quietly talking to self. Pleasant affect. No distress.
--- NOTE | 2019-01-13 13:30 | NUR ---
Ate lunch and sat up in chair sleeping. No distress. Patient is pleasantly confused.
--- NOTE | 2019-01-13 15:47 | NUR ---
The patient woke in a pleasant mood and is calm and cooperative. Confused and has memory loss. Bath care provided by tech and sitting eating a snack, taking fluids. No distress.
--- NOTE | 2019-01-13 17:50 | NUR ---
The patient is sitting up in chair, quiet and calm. Ambulates to bathroom by self whenever needed. Alert and oriented to self only.
--- NOTE | 2019-01-13 18:36 | NUR ---
Report rec'd, care assumed. Sitting up in chairt at bedside eating dinner. No needs noted at this time. Will continue to monitor.
--- NOTE | 2019-01-13 19:11 | NUR ---
Continues to sit in chair at bedside, awake without complaints or needs voiced. Will continue to monitor for changes.
[2019-01-13] MEDS: traZODone 50mg tablet PO SCH (20:19)
--- NOTE | 2019-01-13 20:26 | NUR ---
Sitting up in chair at bedside. Took medications without issues. Vital signs obtained. Patient with confused/delusional thought processes and verbalizations. Talking about "the mob is out to get me, I think they are going to kill me", states "I think it is because I don't have the money I was supposed to get". Reassurance for safety provided. Will continue to monitor.
--- NOTE | 2019-01-13 21:36 | NUR ---
Resting in bed, eyes closed, appearing to sleep. No new concerns or issues noted, will continue to monitor.
--- NOTE | 2019-01-13 22:30 | NUR ---
Resting in bed with eyes closed, appearing to sleep with resp even and unlabored. Will continue to monitor.
--- NOTE | 2019-01-13 23:51 | NUR ---
Resting in bed, appearing to sleep, will monitor.
--- NOTE | 2019-01-14 00:33 | NUR ---
Appearing to sleep comfortably in bed without new issues or concerns noted. Will continue to monitor.
--- NOTE | 2019-01-14 01:44 | NUR ---
Awake, sitting up in chair at side of bed. Up to BRP per self. Denies needs at this time. Will continue to monitor.
--- NOTE | 2019-01-14 02:51 | NUR ---
Laying in bed, resting, appearing to sleep, will monitor.
--- NOTE | 2019-01-14 03:43 | NUR ---
Laying in bed, resting, appearing to sleep, will monitor.
--- NOTE | 2019-01-14 04:56 | NUR ---
Resting in bed, appearing to sleep.
--- NOTE | 2019-01-14 05:40 | NUR ---
Vital signs taken, no issues noted, will monitor.
--- NOTE | 2019-01-14 06:47 | NUR ---
Recieved Pt in bed sleeping without distress.
--- NOTE | 2019-01-14 09:00 | NUR ---
Pt awake and making bed. Requested paper and something to write with. Given paper an e few crayons. Took AM noemi without issue. Calm and cooperative.
[2019-01-14] MEDS: ziprasidone 20mg capsule PO SCH ×2 (09:21→20:10)
--- NOTE | 2019-01-14 11:00 | NUR ---
Pt resting in chair without distress.
--- NOTE | 2019-01-14 13:00 | NUR ---
Pt ate lunch and enjoyed it. Friendly and cooperative. Sitting in chair looking at papers.
--- NOTE | 2019-01-14 15:00 | NUR ---
Pt sitting in chair resting. Cooperative and pleasant with staff.
--- NOTE | 2019-01-14 18:06 | NUR ---
Pt awake and up to bathroom. Reamains pleasant and cooperative. Returned to sitting in chair, smiling and waiting for dinner.
--- NOTE | 2019-01-14 18:45 | NUR ---
Pt family here to visit. All are speaking quietly near pt bed.
--- NOTE | 2019-01-14 19:40 | NUR ---
Pt sitting in recliner next to his bed quietly. Visitors departed.
[2019-01-14] MEDS: traZODone 50mg tablet PO SCH (20:10)
--- NOTE | 2019-01-14 20:50 | NUR ---
Pt cooperated with medication administration. Displayed some confusion earlier stating strange people were outside his house and wanted to hurt his son. Pt reoriented and reassured. Pt was led back to bed, and was offered a warm blanket. Pt appears to be sleeping quietly in bed. Respirations even and unlabored.
--- NOTE | 2019-01-14 22:00 | NUR ---
Pt appears to be sleeping quietly in bed, Respirations even and unlabored.
--- NOTE | 2019-01-15 00:15 | NUR ---
Pt appears to be sleeping quietly in bed. Respirations even and unlabored.
--- NOTE | 2019-01-15 02:30 | NUR ---
Pt appears to be sleeping quietly in bed, Respirations even and unlabored.
--- NOTE | 2019-01-15 06:30 | NUR ---
Asleep upon change of shift obsevation. Color and breathing WNL. Undisturbed at this time.
--- NOTE | 2019-01-15 08:30 | NUR ---
Served breakfast. Ate his meal independently. Accepted his medication without event. Continues to smile at staff and say thank you when assisted by staff.
[2019-01-15] MEDS: ziprasidone 20mg capsule PO SCH ×2 (08:54→20:32)
--- NOTE | 2019-01-15 09:10 | NUR ---
Up to bathroom, returned to bed with direction by staff.
--- NOTE | 2019-01-15 10:30 | NUR ---
Sleeping on his right side at this time. Color and breathing WNL.
--- NOTE | 2019-01-15 13:30 | NUR ---
Ate well for lunch. Feeds himself, takes his time. Smiles upon staff approach. Consistently presents as good natured.
--- NOTE | 2019-01-15 16:14 | NUR ---
Patient sleeping soundly in his geriatric chair. Attempted to wake patient to put him back to bed but he is sleeping soundly and unable to rouse.
--- NOTE | 2019-01-15 17:11 | NUR ---
Awake. Ambulated to the bathroom. Walked back to his bed without difficulty. Gait strong and steady. Patient within view of staff at all times.
[2019-01-15] MEDS: traZODone 50mg tablet PO SCH (20:32)
--- NOTE | 2019-01-16 09:30 | NUR ---
PT HAS BEEN MAKING BED SEVERAL TIMES THIS AM AND HAS HAD BREAKFAST ALREADY.
[2019-01-16] MEDS: LORazepam 0.5 MG tablet PO PRN (09:38)
[2019-01-16] MEDS: ziprasidone 20mg capsule PO SCH ×2 (09:38→20:11)
--- NOTE | 2019-01-16 11:00 | NUR ---
SPOKE WITH GLORIA WITH SS REGARDING PLAN FOR PLACEMENT. SS WORKER HAS BEEN SPEAKING WITH FAMILY AND IS AWARE PTS GRANDSON NOW WITH POA FOR PT CARE. RECEIVED REPORT FROM THAT FAMILY STATES THEY ARE CURRENTLY SEEKING PLACEMENT OPTIONS FOR PT AND TRYING TO SORT PT FINANCES
--- NOTE | 2019-01-16 11:32 | NUR ---
PT CURRENTLY SITTING IN CHAIR AT BEDSIDE.
--- NOTE | 2019-01-16 12:13 | NUR ---
SS had t/c with pt's grandson and engaged him in a discussion re placement options for pt & pt's finances to facilitate placement. Per discussion, pt's grandson's been successful in accessing pt's finances and has been paying back bills for pt. son informed SS that pt does have a monthly income & savings in the bank that he can use towards placement but grandbev does not know how to go about finding a place for pt. SS asked pt's grandson if he'd like for SS to contact the [facility] and have Olivia Du contact him to provide assistance in finding options for placement, chelsea agreeable to this. SS contacted Lam Du, provided referral for placement assistance. Ms. Du will contact pt's grandson to provide assistance finding assisted living & LTC placement options for pt. SS will continue to monitor. Addendum: 01/16/19 at 1242 by Brittany Mccann Amended: Links added.
[2019-01-16] MEDS: traZODone 50mg tablet PO SCH (20:11)
--- NOTE | 2019-01-17 01:00 | NUR ---
pt resting comfortably on his back. no signs of distress. will continue to monitor.
--- NOTE | 2019-01-17 07:06 | NUR ---
REPORT RECEIVED, CARE ASSUMED OF PT SLEEPING ON RT SIDE IN NO NOTED DISTRESS
--- NOTE | 2019-01-17 07:15 | NUR ---
PT UP TO BATHROOM WITHOUT ASSISTANCE
[2019-01-17] MEDS: ziprasidone 20mg capsule PO SCH ×2 (08:35→20:05)
--- NOTE | 2019-01-17 09:43 | NUR ---
WAS REQUESTED BY RINKU ALEJANDRE TO FOLLOW UP WITH CASE MGT/DC PLANNING AND PT'S GRANDSON WHO IS HIS POA REGARDING FINDING PLACEMENT. CASE MGT WAS PAGED AND A PHONE MESSAGE WAS LEFT TO CALL THE UNIT.
--- NOTE | 2019-01-17 11:24 | NUR ---
PT UP READING MAGAZINE IN BED. PT HAS BEEN COOPERATIVE, PLEASANT AND FRIENDLY.
--- NOTE | 2019-01-17 13:58 | NUR ---
pt is sitting up in chair reading magazines. offered larry crackers and milk for snack.
--- NOTE | 2019-01-17 14:39 | NUR ---
SS had t/c w/pt's grand-dtr in-law, chelsea & Senior Placement Milk Receiver [employer]-Olivia Du re pt's placement. Per discussion, pt's chelsea's will be meeting w/pt and Ms. Du this morning to begin their search for an an appropriate placement facility for pt. SS will continue to monitor to support dcp activities. Addendum: 01/17/19 at 1444 by Brittany Mccann SS Amended: Links added.
--- NOTE | 2019-01-17 15:33 | NUR ---
patient up to nathroom, staedy on feet,
--- NOTE | 2019-01-17 15:33 | NUR ---
patient up to bathroom, ambulated wnl, pt pleasant and no needs at this time
--- NOTE | 2019-01-17 17:44 | NUR ---
pt was up to use restroom, now sleeping in bed.
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
[2019-01-17] MEDS: traZODone 50mg tablet PO SCH (20:05)
--- NOTE | 2019-01-17 20:36 | NUR ---
pt was given pm meds, is now sleeping. no s/s of distress, rr wnl.
--- NOTE | 2019-01-17 22:51 | NUR ---
pt is sleeping, rr normal, no s/s of distress.
--- NOTE | 2019-01-18 00:13 | NUR ---
PT UP TO USE RESTROOM, THEN BACK TO BED.
--- NOTE | 2019-01-18 01:26 | NUR ---
PATIENT LYING SUPINE IN BED EYES CLOSED COVERS ON RR EVEN UN LABORED NO OBSERVABLE S/S OF ACUTE STRESS AT THIS TIME
--- NOTE | 2019-01-18 03:25 | NUR ---
PATIENT IN BED LYING ON RIGHT SIDE COVERS ON EYES CLOSED RR EVEN UN LABORED NO OBSERVABLE S/S OF ACUTE STRESS AT THIS TIME
--- NOTE | 2019-01-18 05:35 | NUR ---
PATIENT UP IN CHAIR WITH LIGHT ON WRITING ON YELLOW LEDGER WITH CRAYON, RR EVEN UN LABORED NO OBSERVABLE S/S OF ACUTE STRESS AT THIS TIME
--- NOTE | 2019-01-18 06:30 | NUR ---
Asleep at this time. Breathing even and unlabored.
--- NOTE | 2019-01-18 08:30 | NUR ---
Sitting up at bedside in his chair. Served breakfast. Ate 100% of his meal. In good spirits. Smiles at staff. Ambulates to the bathroom without problem. Continues to ask staff for permission to use bathroom.
--- NOTE | 2019-01-18 09:14 | NUR ---
Late Note: Service rendered 01/17/19 @ 4:30 PM SS received t/c from Olivia Du, Senior Placement Order Dispatcher; per t/c pt's grandchildren will be contacting [facility] & completing a placement application for pt. Plan: SS will consult w/CM Director to request CM services for pt so that the necessary RCCL forms & medical clearances are completed to facilitate placement for pt. Addendum: 01/18/19 at 0918 by Brittany Mccann SS Amended: Links added.
--- NOTE | 2019-01-18 09:19 | NUR ---
SS consulted w/CM Director re CM services for pt to facilitate placement services as pt's grandchildren are now able to assume POA responsibilities for pt. Per discussion, a CM will be assigned to coordinate placement services with family & placement facility. Addendum: 01/18/19 at 0918 by Brittany VASQUEZ Amended: Links added.
[2019-01-18] MEDS: ziprasidone 20mg capsule PO SCH ×2 (09:27→20:25)
--- NOTE | 2019-01-18 10:30 | NUR ---
Laying in bed, talking to self. Went over to patient to see how he was doing. Patient stated "I'm looking for my . I think she went off with her friend Yulia. I love her a lot. I just don't know how to get hold of her." Continued to talk to self after staff left.
[2019-01-18] MEDS ORDERED: tuberculin, purif. prot. deriv. 5 units/0.1ml ID ONE (12:15)
--- NOTE | 2019-01-18 12:30 | NUR ---
Awake and sitting in bedside chair. Asked if he knew where he was, patient stated "hospital." Asked If he knew the month. Patient stated, "It's not time to be planting the grain."
--- NOTE | 2019-01-18 13:00 | NUR ---
Call received from [facility], stating that patient was tentatively accepted at a skilled living facility called [facility]. Patient required a PPD to test for TB before admission.
--- NOTE | 2019-01-18 13:30 | NUR ---
Order received for PPD. PPD administered in left forearm without event.
--- NOTE | 2019-01-18 15:00 | NUR ---
Two staff members from [facility] scott Carbajal at bedside to evaluate patient for care at their unit.
--- NOTE | 2019-01-18 15:30 | NUR ---
Staff members from [facility] stated they will accept patient for care at their facility pending negative PPD. PPD to be read on 01/20/19 at 1330.
--- NOTE | 2019-01-18 18:13 | NUR ---
Sitting at bedside, talking to self. Given snacks after he stated he was hungry.
--- NOTE | 2019-01-18 18:27 | NUR ---
Patient is sitting upright in bed eating dinner.
[2019-01-18] MEDS: traZODone 50mg tablet PO SCH (20:25)
--- NOTE | 2019-01-18 22:33 | NUR ---
Patient sleeping comfortably in bed.
--- NOTE | 2019-01-19 01:14 | NUR ---
Patient is awake and sitting quietly perusing his personal care items.
--- NOTE | 2019-01-19 03:08 | NUR ---
Patient sleeping comfortably in bed.
--- NOTE | 2019-01-19 11:30 | NUR ---
Grandson here to help coordinate transferring patient to his new place of residence. He requested paperwork that he was supposed to sign
[2019-01-19] MEDS: ziprasidone 20mg capsule PO SCH ×2 (11:46→21:04)
--- NOTE | 2019-01-19 12:43 | NUR ---
relieving RN for lunch, pt is resting quietly on chair, calm and cooperative
--- NOTE | 2019-01-19 15:17 | NUR ---
SS had t/c with pt's granddtr this AM, per t/c, pt's granddtr informed SS that she & pt's grandson will pick him up tomorrow between 12:00 & 12:30 PM Addendum: 01/19/19 at 1522 by Brittany Mccann Amended: Links added.
[2019-01-19] MEDS: traZODone 50mg tablet PO SCH (21:04)
--- NOTE | 2019-01-19 23:05 | NUR ---
PT IS AWAKE, TALKING TO RN AT THE COUNTER. PT IS VERY POLITE AND COOPERATIVE. PT REQUESTING TO USE THE BATHROOM.
--- NOTE | 2019-01-19 23:54 | NUR ---
PT IS SLEEPING LAYING SUPINE, RESPERATIONS EVEN AND UNLABORED. NO DISTRESS NOTED AT THIS TIME.
--- NOTE | 2019-01-20 00:10 | NUR ---
Report rec'd, care assumed, assessments reviewed and agreed with. Patient is currently resting in bed with eyes closed, appearing to sleep. Will continue to monitor.
--- NOTE | 2019-01-20 01:23 | NUR ---
In bed, appearing to sleep.
--- NOTE | 2019-01-20 02:58 | NUR ---
Appearing to sleep, no new concerns or issues noted. Will continue to monitor.
--- NOTE | 2019-01-20 03:52 | NUR ---
Resting in bed with eyes closed, appearing to sleep without new issues or concerns noted, will continue to monitor for changes.
--- NOTE | 2019-01-20 04:30 | NUR ---
Awake, up to BRP, no needs voiced.
--- NOTE | 2019-01-20 05:45 | NUR ---
Vital signs taken by Tech. Cooperative with cares this morning, will monitor.
[2019-01-20 06:03] VITALS: BP 115/88
--- NOTE | 2019-01-20 06:30 | NUR ---
pt report recieved and care assumed. Pt walking around bed calm and cooperative.
--- NOTE | 2019-01-20 07:54 | NUR ---
pt resting comfortably sitting in chair by his bed reading. Hasn't asked for anything and is very quiet.
[2019-01-20] MEDS: ziprasidone 20mg capsule PO SCH (08:48)
--- NOTE | 2019-01-20 09:45 | NUR ---
Pt escorted to and assisted with shower with PCT and security. Pt calm and cooperative.
--- NOTE | 2019-01-20 11:16 | NUR ---
pt resting comfortably, calm and cooperative in chair next to bed. Now needs at this time.
[2019-01-20] MEDS ORDERED: ZIPR20CA2 PO (12:15)
[2019-01-20] MEDS ORDERED: TRAZ-218 PO (12:15)
--- NOTE | 2019-01-20 12:33 | NUR ---
pt discharged and picked up by his grandson and MATILDE Sweet and taken to [facility]. Discharge papers and prescriptions reviewed with pts grandson. Pt ambulated to car for discharge.
== END 2019-01-20 12:50 | disposition home or self-care (01) ==
LOC: ER 20:14
DX: F03.90 Unspecified dementia, unspecified severity, without behavioral disturbance, psychotic disturbance, mood disturbance, and anxiety (principal); R41.82 Altered mental status, unspecified; Z60.2 Problems related to living alone
CPT/HCPCS: 36415; 82607; 82948; 86592; 90471; 90715; 96372; 99285; J1200; J1630; J2060

== ENCOUNTER 2019-02-16 11:22 | Emergency (ER) | payer MEDICARE, OTHER ==
[~2019-02-16] VITALS: Ht 190.5 cm; Wt 71.3 kg
[~2019-02-16 11:22] MED LIST: NO HOME MEDS; TRAZ-218 PO; ZIPR20CA2 PO
[2019-02-16 11:43] VITALS: BP 152/71
[2019-02-16] MEDS ORDERED: TRAZ-218 PO (11:51)
[2019-02-16] MEDS ORDERED: ZIPR20CA12 PO (11:51)
== END 2019-02-16 12:09 | disposition home or self-care (01) ==
LOC: ER 11:23
DX: S05.12XA Contusion of eyeball and orbital tissues, left eye, initial encounter (principal); H11.32 Conjunctival hemorrhage, left eye; F03.90 Unspecified dementia, unspecified severity, without behavioral disturbance, psychotic disturbance, mood disturbance, and anxiety; Z79.899 Other long term (current) drug therapy; X58.XXXA Exposure to other specified factors, initial encounter; Y93.89 Activity, other specified; Y92.89 Other specified places as the place of occurrence of the external cause; Y99.8 Other external cause status
CPT/HCPCS: 99283

== ENCOUNTER 2019-03-06 11:13 | Emergency (ER) | payer MEDICARE, OTHER ==
[~2019-03-06] VITALS: Ht 190.5 cm; Wt 93.2 kg
[~2019-03-06 11:13] MED LIST changes: +ZIPR20CA12 PO
[2019-03-06 11:37] VITALS: BP 138/76
[2019-03-06] MEDS ORDERED: ZIPR20CA12 PO (12:54)
[2019-03-06] MEDS ORDERED: TRAZ-218 PO (12:54)
== END 2019-03-06 13:04 | disposition home or self-care (01) ==
LOC: ER 11:14
DX: H57.89 Other specified disorders of eye and adnexa (principal); Z76.0 Encounter for issue of repeat prescription; Z60.2 Problems related to living alone; Z79.899 Other long term (current) drug therapy
CPT/HCPCS: 99283; 99284

== ENCOUNTER 2019-07-14 08:53 | Emergency (ER) | payer MEDICARE, OTHER ==
[~2019-07-14] VITALS: Ht 190.5 cm; Wt 100.0 kg
[~2019-07-14 08:53] MED LIST changes: -TRAZ-218 PO; +TRAZ-251 PO
[2019-07-14 09:00] VITALS: BP 161/83
== END 2019-07-14 11:11 | disposition home or self-care (01) ==
LOC: ER 08:53
DX: N43.3 Hydrocele, unspecified (principal)
CPT/HCPCS: 76870; 99284

== ENCOUNTER 2019-08-15 08:53 | Emergency (ER) | payer MEDICARE, OTHER ==
[~2019-08-15] VITALS: Ht 188 cm; Wt 82.5 kg
[2019-08-15] MEDS ORDERED: ZIPR20CA2 PO (10:55)
[2019-08-15 11:00] VITALS: BP 151/81
== END 2019-08-15 11:01 | disposition home or self-care (01) ==
LOC: ER 08:53
DX: F32.9 Major depressive disorder, single episode, unspecified (principal); Z76.0 Encounter for issue of repeat prescription; F41.9 Anxiety disorder, unspecified; F03.90 Unspecified dementia, unspecified severity, without behavioral disturbance, psychotic disturbance, mood disturbance, and anxiety; Z79.899 Other long term (current) drug therapy
CPT/HCPCS: 99283

== ENCOUNTER 2019-11-25 11:11 | Inpatient (IN) | payer MEDICARE ==
[~2019-11-25] VITALS: Ht 182.9 cm; Wt 100.0 kg
[2019-11-25 11:48] LABS: CLARITY,URINE CLEAR (Clear); COLOR,URINE YELLOW (Yellow); GLUCOSE, URINE NEGATIVE (Neg); KETONES,URINE NEGATIVE (Neg); LEUKOCYTE ESTERASE ,URINE NEGATIVE (Neg); NITRITES, URINE NEGATIVE (Neg); OCCULT BLOOD,URINE TRACE-INTACT (Neg); PROTEIN,URINE NEGATIVE (Neg)
[2019-11-25 11:53] LABS: UA COLLECTION TYPE CLN CATCH MIDSTREAM
[2019-11-25 11:54] LABS: BACTERIA,URINE FEW /HPF (Neg); MUCUS STRANDS FEW /LPF (Neg); RBC,URINE 0-2 /HPF (0-2); SQUAMOUS EPITHELIAL CELL,UR FEW /LPF (FEW)
[2019-11-25] MEDS ORDERED: normal saline 1000ML IV soln IVB ONE (12:25)
[2019-11-25 12:49] LABS: BASOPHILS # (AUTO) 0.1 X10'3 (0-0.2); BASOPHILS % (AUTO) 0.7 % (0-1); EOSINOPHILS # (AUTO) 0.1 X10'3 (0-0.9); EOSINOPHILS % (AUTO) 1.1 % (0-6); HEMATOCRIT 34.3 % (42.0-52.0); HEMOGLOBIN 11.5 g/dl (14.0-17.9); LYMPHOCYTES # (AUTO) 1.5 X10'3 (1.1-4.8); LYMPHOCYTES % (AUTO) 14.7 % (21-51); MEAN CORPUSCULAR HEMOGLOBIN 30.5 PG (27.0-31.0); MEAN CORPUSCULAR HGB CONC 33.6 g/dL (33.0-36.5); MEAN CORPUSCULAR VOLUME 90.7 FL (78-98); MEAN PLATELET VOLUME 8.7 FL (7.4-10.4); MONOCYTES % (AUTO) 9.1 % (2-12); NEUTROPHILS # (AUTO) 7.8 X10'3 (1.8-7.7); NEUTROPHILS % (AUTO) 74.4 % (42-75); PLATELET COUNT 217 X10'3 (140-440); RED BLOOD COUNT 3.78 X10'6 (4.70-6.10); RED CELL DISTRIBUTION WIDTH 13.7 % (11.5-14.5); WHITE BLOOD COUNT 10.4 X10'3 (4.5-11.0)
[2019-11-25 13:01] LABS: ALANINE AMINOTRANSFERASE 12 U/L (12-78); ALBUMIN 2.9 G/DL (3.4-5.0); ALBUMIN/GLOBULIN RATIO 0.8 (1.1-1.5); ALKALINE PHOSPHATASE 71 IU/L (46-116); ANION GAP 8 (8-16); ASPARTATE AMINO TRANSFERASE 14 U/L (10-37); BILIRUBIN,TOTAL 0.7 MG/DL (0.1-1.0); BLOOD UREA NITROGEN 21 MG/DL (7-18); CALCIUM 7.9 MG/DL (8.5-10.1); CHLORIDE 104 MMOL/L (99-107); CREATININE 1.62 MG/DL (0.60-1.10); GLUCOSE 96 MG/DL (70-104); POTASSIUM 4.1 MMOL/L (3.5-5.1); SODIUM 140 MMOL/L (135-145); TOTAL PROTEIN 6.6 G/DL (6.4-8.2); eGFR 41 ML/MIN
--- NOTE | 2019-11-25 13:17 | NUR ---
pt out to ct via sarah with glove parts inspector
[2019-11-25] MEDS ORDERED: levoFLOXACIN-Levaquin 500mg/D5 100 ML IV ONE (13:35)
[2019-11-25] MEDS ORDERED: cefepime 2gm inj IV SCH (13:35)
[2019-11-25] MEDS ORDERED: CEFEPIME IV ONE (13:40)
[2019-11-25] MEDS ORDERED: DEXTROSE IV ONE (13:40)
[2019-11-25] MEDS ORDERED: normal saline 1000ml 1,000 ML IV SCH (14:16)
[2019-11-25] MEDS ORDERED: potassium CL 10mEq/100ml bag 100 ML IV PRN ×2 (14:20)
[2019-11-25] MEDS ORDERED: magnesium Cl slow-release 64mg tablet PO PRN (14:20)
[2019-11-25] MEDS ORDERED: ondansetron/PF 4mg/2ml inj IV PRN (14:20)
[2019-11-25] MEDS ORDERED: magnesium 2GM in 50ml NS 50 ML IV PRN (14:20)
[2019-11-25] MEDS ORDERED: mag hydrox/Alum hydrox/simeth 30ml oral suspension PO PRN (14:20)
[2019-11-25] MEDS ORDERED: magnesium hydroxide 30ml (MOM) UD suspension PO PRN (14:20)
[2019-11-25] MEDS ORDERED: acetaminophen 325mg tablet PO PRN ×2 (14:20)
[2019-11-25] MEDS ORDERED: magnesium 4gm in 100ml NS 100 ML IV PRN (14:20)
[2019-11-25] MEDS ORDERED: morphine 2 MG/ML inj. syringe IV PRN (14:20)
[2019-11-25] MEDS ORDERED: HYDROcodone/acetaminophen 5mg/325mg tablet PO PRN (14:20)
[2019-11-25] MEDS ORDERED: potassium Cl 20 mEq SR tablet PO PRN ×2 (14:20)
--- NOTE | 2019-11-25 14:48 | NUR ---
Patient in room ED 15. I have received report from doug OROZCO and had the opportunity to ask questions and assume patient care.
[2019-11-25 15:13] VITALS: BP 138/66
[2019-11-25 18:00] VITALS: BP 149/81
--- NOTE | 2019-11-25 18:22 | NUR ---
Problems reprioritized. Patient report given, questions answered & plan of care reviewed with Holly Cruz RN.
[2019-11-25] MEDS: K and/or MAG REPLACEMENT MC SCH (18:35)
[2019-11-25] MEDS: heparin, porcine 5000 units/ml vial SQ SCH (20:05)
[2019-11-25 22:00] VITALS: BP 121/65
--- NOTE | 2019-11-26 06:09 | NUR ---
Problems reprioritized. Patient report given, questions answered & plan of care reviewed with PAM Gibbs.
--- NOTE | 2019-11-26 06:31 | NUR ---
Received report from Holly OROZCO
[2019-11-26 06:58] LABS: BASOPHILS % (AUTO) 0.5 % (0-1); EOSINOPHILS # (AUTO) 0.2 X10'3 (0-0.9); EOSINOPHILS % (AUTO) 2.7 % (0-6); HEMATOCRIT 37.2 % (42.0-52.0); HEMOGLOBIN 12.4 g/dl (14.0-17.9); LYMPHOCYTES # (AUTO) 1.6 X10'3 (1.1-4.8); LYMPHOCYTES % (AUTO) 19.6 % (21-51); MEAN CORPUSCULAR HEMOGLOBIN 30.1 PG (27.0-31.0); MEAN CORPUSCULAR HGB CONC 33.3 g/dL (33.0-36.5); MEAN CORPUSCULAR VOLUME 90.4 FL (78-98); MONOCYTES # (AUTO) 0.8 X10'3 (0-0.9); MONOCYTES % (AUTO) 9.7 % (2-12); NEUTROPHILS # (AUTO) 5.4 X10'3 (1.8-7.7); NEUTROPHILS % (AUTO) 67.5 % (42-75); PLATELET COUNT 221 X10'3 (140-440); RED BLOOD COUNT 4.11 X10'6 (4.70-6.10); RED CELL DISTRIBUTION WIDTH 13.5 % (11.5-14.5); WHITE BLOOD COUNT 7.9 X10'3 (4.5-11.0)
[2019-11-26 07:15] LABS: ALANINE AMINOTRANSFERASE 13 U/L (12-78); ALBUMIN 2.7 G/DL (3.4-5.0); ALBUMIN/GLOBULIN RATIO 0.7 (1.1-1.5); ALKALINE PHOSPHATASE 62 IU/L (46-116); ANION GAP 9 (8-16); ASPARTATE AMINO TRANSFERASE 15 U/L (10-37); BILIRUBIN,TOTAL 0.6 MG/DL (0.1-1.0); BLOOD UREA NITROGEN 18 MG/DL (7-18); BUN/CREATININE RATIO 14.6 (5.4-32.0); CALCIUM 8.2 MG/DL (8.5-10.1); CHLORIDE 106 MMOL/L (99-107); CREATININE 1.23 MG/DL (0.60-1.10); GLUCOSE 87 MG/DL (70-104); POTASSIUM 4.2 MMOL/L (3.5-5.1); SODIUM 142 MMOL/L (135-145); TOTAL CARBON DIOXIDE 27.4 MMOL/L (24-32); TOTAL PROTEIN 6.5 G/DL (6.4-8.2); eGFR 56 ML/MIN
[2019-11-26] MEDS: heparin, porcine 5000 units/ml vial SQ SCH (07:20)
[2019-11-26 08:00] VITALS: BP_SYST 116; BP_SYST 130; BP_DIAS 62; BP_DIAS 66
[2019-11-26] MEDS: K and/or MAG REPLACEMENT MC SCH (08:00)
[2019-11-26] MEDS ORDERED: CefTRIAXone 2gm/D5W 50ml 50 ML IV SCH (08:00)
[2019-11-26 10:00] VITALS: BP 130/66
[2019-11-26] MEDS ORDERED: LEVO500T2 PO (13:54)
--- NOTE | 2019-11-26 17:05 | NUR ---
Patients were discharged iv and tele was removed from patient. Patient was alert and oriented at time of discharge. Patient was wheeled out and left with hes grandson which will take him to [facility].
[2019-11-26] MEDS ORDERED: lactobacillus rhamnosus 10,000 MMU CELLS/CAPSULE PO SCH (20:00)
--- NOTE | 2019-11-28 12:39 | NUR ---
Case Management DC follow up: spoke to [facility] grant administratorMaia where pt resides. Pt is back to baseline, compliant w/care and taking medications as ordered. Thanked [facility] for calling and checking on the patient, appreciates the call.
== END 2019-11-26 17:09 | disposition home or self-care (01) | DRG 193 ==
LOC: ER 11:11 → ED HOLD 14:16 → ORTHO 4S 14:55
PROVIDERS: ADMIT Internal Medicine; ATTEND Internal Medicine
DX: J18.9 Pneumonia, unspecified organism (principal); N17.0 Acute kidney failure with tubular necrosis; G93.40 Encephalopathy, unspecified; F03.90 Unspecified dementia, unspecified severity, without behavioral disturbance, psychotic disturbance, mood disturbance, and anxiety; N18.3 Chronic kidney disease, stage 3 (moderate); Z66 Do not resuscitate; F32.9 Major depressive disorder, single episode, unspecified; F41.9 Anxiety disorder, unspecified; Z60.2 Problems related to living alone
CPT/HCPCS: 36415; 70450; 71045; 80053; 81001; 82140; 83605; 83735; 84443; 85025; 87040; 93306; 96374; 97110; 97116; 97162; 99285; G0378; J0692; J0696; J1644; J1956; J7030

== ENCOUNTER 2021-02-18 09:02 | Observation (INO) | payer OTHER, MEDICARE ==
[~2021-02-18] VITALS: Ht 188 cm; Wt 90.0 kg
[~2021-02-18 09:02] MED LIST changes: +LEVO500T2 PO; -NO HOME MEDS; -TRAZ-251 PO; -ZIPR20CA12 PO; -ZIPR20CA2 PO
[2021-02-18] MEDS ORDERED: LIDOcaine 1% W/epiNEPHrine 1:200,000 10ml vial IJ ONE (09:50)
[2021-02-18] MEDS ORDERED: TETanus/Pertussis (Acell)/Diphther VAC/PF (Tdap-Adult) 0.5ml syringe IMVAC ONE (09:50)
[2021-02-18 10:13] LABS: BASOPHILS % (AUTO) 0.3 % (0-1); EOSINOPHILS % (AUTO) 0.6 % (0-6); HEMATOCRIT 39.4 % (42.0-52.0); LYMPHOCYTES # (AUTO) 1.4 X10'3 (1.1-4.8); LYMPHOCYTES % (AUTO) 17.6 % (21-51); MEAN CORPUSCULAR HEMOGLOBIN 30.7 PG (27.0-31.0); MEAN PLATELET VOLUME 8.6 FL (7.4-10.4); MONOCYTES # (AUTO) 0.5 X10'3 (0-0.9); MONOCYTES % (AUTO) 6.3 % (2-12); NEUTROPHILS # (AUTO) 5.8 X10'3 (1.8-7.7); NEUTROPHILS % (AUTO) 75.2 % (42-75); PLATELET COUNT 183 X10'3 (140-440); RED BLOOD COUNT 4.24 X10'6 (4.70-6.10); RED CELL DISTRIBUTION WIDTH 14.4 % (11.5-14.5); WHITE BLOOD COUNT 7.7 X10'3 (4.5-11.0)
[2021-02-18 10:27] LABS: ALANINE AMINOTRANSFERASE 14 U/L (12-78); ALBUMIN 3.8 G/DL (3.4-5.0); ALBUMIN/GLOBULIN RATIO 1.1 (1.1-1.5); ALKALINE PHOSPHATASE 72 IU/L (46-116); ANION GAP 10 (8-16); ASPARTATE AMINO TRANSFERASE 21 U/L (10-37); BILIRUBIN,TOTAL 0.8 MG/DL (0.1-1.0); BLOOD UREA NITROGEN 27 MG/DL (7-18); BUN/CREATININE RATIO 16.5 (5.4-32.0); CHLORIDE 104 MMOL/L (99-107); CREATININE 1.64 MG/DL (0.60-1.10); GLUCOSE 98 MG/DL (70-104); POTASSIUM 4.7 MMOL/L (3.5-5.1); SODIUM 143 MMOL/L (135-145); TOTAL CARBON DIOXIDE 29.4 MMOL/L (24-32); TOTAL PROTEIN 7.3 G/DL (6.4-8.2); eGFR 40 ML/MIN
[2021-02-18 10:30] LABS: TROPONIN I < 0.04 NG/ML (0.0-0.05)
--- NOTE | 2021-02-18 11:50 | NUR ---
C COLLAR REMOVED AT THIS TIME BY
[2021-02-18 12:16] LABS: CLARITY,URINE CLEAR (Clear); COLOR,URINE YELLOW (Yellow); GLUCOSE, URINE NEGATIVE (Neg); KETONES,URINE NEGATIVE (Neg); LEUKOCYTE ESTERASE ,URINE NEGATIVE (Neg); NITRITES, URINE NEGATIVE (Neg); OCCULT BLOOD,URINE NEGATIVE (Neg); PH,URINE 5.5 (4.8-8.0); PROTEIN,URINE NEGATIVE (Neg); UROBILINOGEN,URINE 0.2 E.U/dL (0.2-1.0)
[2021-02-18 12:22] LABS: UA COLLECTION TYPE STRAIGHT CATH
--- NOTE | 2021-02-18 12:34 | NUR ---
pt to ct for repeat scan.
--- NOTE | 2021-02-18 12:52 | NUR ---
Pt's grandson Rodríguez ([phone]) call for update, which was provided including pending results of 2nd heat ct for further poc decision making. Per Rodríguez, pt resides @ [facility].
[2021-02-18] MEDS ORDERED: ZIPR20CA12 PO (16:13)
[2021-02-18] MEDS ORDERED: CYAN-34 PO (16:13)
[2021-02-18] MEDS ORDERED: TRAZ-251 PO (16:13)
[2021-02-18] MEDS ORDERED: LISI20TA28 PO (16:14)
[2021-02-18] MEDS ORDERED: DONE-46 PO (16:14)
[2021-02-18] MEDS ORDERED: CHOL20002 PO (16:14)
[2021-02-18] MEDS ORDERED: ASPI-611 PO (16:14)
--- NOTE | 2021-02-18 16:18 | NUR ---
Patient moved to bed 8 for closer observation for fall precautions
[2021-02-18] MEDS ORDERED: potassium Cl 20 mEq SR tablet PO PRN ×2 (16:40)
[2021-02-18] MEDS ORDERED: ondansetron/PF 4mg/2ml inj IV PRN (16:40)
[2021-02-18] MEDS ORDERED: potassium Cl 40MEQ/1/2NS 520ml 520 ML IV PRN ×2 (16:40)
[2021-02-18] MEDS ORDERED: magnesium hydroxide 30ml (MOM) UD suspension PO PRN (16:40)
[2021-02-18] MEDS ORDERED: acetaminophen 325mg tablet PO PRN ×2 (16:40)
[2021-02-18] MEDS ORDERED: magnesium Cl slow-release 64mg tablet PO PRN (16:40)
[2021-02-18] MEDS ORDERED: magnesium 4gm in 100ml NS 100 ML IV PRN (16:40)
[2021-02-18] MEDS ORDERED: bisacodyl 10mg suppository rectal RC PRN (16:40)
[2021-02-18] MEDS ORDERED: magnesium 2GM in 50ml NS 50 ML IV PRN (16:40)
[2021-02-18] MEDS ORDERED: mag hydrox/Alum hydrox/simeth 30ml oral suspension PO PRN (16:40)
[2021-02-18] MEDS ORDERED: metoclopramide 5 mg/ml inj IV PRN (16:40)
[2021-02-18] MEDS ORDERED: hydrALAZINE 20mg/ml inj. IV PRN (16:45)
[2021-02-18] MEDS: normal saline 1000ml 1,000 ML IV SCH (18:49)
[2021-02-18] MEDS: K and/or MAG REPLACEMENT MC SCH (20:00)
[2021-02-18] MEDS: ziprasidone 20mg capsule PO SCH (20:10)
[2021-02-18] MEDS ORDERED: temazepam 15mg capsule PO PRN (21:00)
[2021-02-18] MEDS ORDERED: traZODone 50mg tablet PO SCH (21:00)
--- NOTE | 2021-02-18 22:07 | NUR ---
Report given to PAM Amaro who will be assuming care in [facility]. Pt to be transferred via gurney with belongings.
[2021-02-19 05:48] LABS: HEMATOCRIT 35.3 % (42.0-52.0); HEMOGLOBIN 11.9 g/dl (14.0-17.9); MEAN CORPUSCULAR HEMOGLOBIN 30.8 PG (27.0-31.0); MEAN CORPUSCULAR HGB CONC 33.6 g/dL (33.0-36.5); MEAN CORPUSCULAR VOLUME 91.7 FL (78-98); MEAN PLATELET VOLUME 9.2 FL (7.4-10.4); PLATELET COUNT 167 X10'3 (140-440); RED BLOOD COUNT 3.85 X10'6 (4.70-6.10); RED CELL DISTRIBUTION WIDTH 14.1 % (11.5-14.5); WHITE BLOOD COUNT 7.9 X10'3 (4.5-11.0)
[2021-02-19 05:55] LABS: ALBUMIN 3.1 G/DL (3.4-5.0); ANION GAP 11 (8-16); BLOOD UREA NITROGEN 23 MG/DL (7-18); BUN/CREATININE RATIO 18.5 (5.4-32.0); CALCIUM 8.8 MG/DL (8.5-10.1); CHLORIDE 106 MMOL/L (99-107); CREATININE 1.24 MG/DL (0.60-1.10); GLUCOSE 90 MG/DL (70-104); MAGNESIUM 2.3 MG/DL (1.5-2.4); SODIUM 143 MMOL/L (135-145); TOTAL CARBON DIOXIDE 25.9 MMOL/L (24-32); eGFR 55 ML/MIN
--- NOTE | 2021-02-19 06:45 | NUR ---
Patient in room [facility] 4022. I have received report from Sondra RN and PAM Borja and had the opportunity to ask questions and assume patient care.
[2021-02-19 06:49] VITALS: BP_SYST 123; BP_SYST 126; BP_SYST 128; BP_DIAS 71; BP_DIAS 82
[2021-02-19 06:50] VITALS: BP 153/88
[2021-02-19] MEDS: normal saline 1000ml 1,000 ML IV SCH ×2 (06:52→12:40)
[2021-02-19] MEDS: ziprasidone 20mg capsule PO SCH (07:06)
[2021-02-19] MEDS: K and/or MAG REPLACEMENT MC SCH (07:08)
[2021-02-19] MEDS ORDERED: donepezil 5mg tablet PO SCH (08:00)
[2021-02-19] MEDS ORDERED: lisinopril 20mg tablet PO SCH (08:00)
[2021-02-19 10:00] VITALS: BP 97/51
--- NOTE | 2021-02-19 10:14 | NUR ---
patient down to CT
--- NOTE | 2021-02-19 10:25 | NUR ---
Patient back to room in recliner watching TV. Fall tabs on. Call light within reach.
--- NOTE | 2021-02-19 11:44 | NUR ---
Received call from Etelvina Sweet stating her Rodríguez is patient's POA and would also be patient's transport back home to [facility] when he is DC'd. Etelvina stated she and her will be working today and asked when patient would be dc'd. Let Etelvina know that as of this morning there had been no MD orders for patient to be dc'd however Rodríguez (who is on patient's contact list) would be updated if there were any changes. Dr. Chand is in to see patient and will be dc'ing patient. Attempted to call Rodríguez at number given by Etelvina and what is also listed [phone] but no answer and unable to leave message as mailbox is full. Attempted to call Etelvina at number given [phone] but when called male who answered stated it was wrong number. Will attempt to call Rodríguez again. Patient is alert and oriented to self and comfortable. Denies any complaints. Will continue to monitor.
[2021-02-19 12:44] VITALS: BP 115/63
--- NOTE | 2021-02-19 13:29 | NUR ---
Rodríguez called and informed of patient being discharged. Rodríguez will be here "after work around 5pm' to transport patient back to [facility].
[2021-02-19] MEDS ORDERED: ondansetron 4mg rapidly disintigrating tab PO PRN (13:39)
--- NOTE | 2021-02-19 13:48 | NUR ---
Patient has been restless and wanting to get out of chair and bed to "get dressed and go to work." Ambulated patient x3 on floor with no issues or complaints. Patient assisted to bed by nursing care partner. Received call from Aurelio from tele monitor stated patient is in AFIB RVR with HR in the 140's-150's. Patient has no complaints, appears to be comfortable in bed with tabs alarm attached. Bed low and locked. Dr. Khoury notified PAGER ID: [phone] MESSAGE: [phone]- Florian Coffey-has been in SR but just now went to AFIB RVR HR 140's-150's. Patient in bed but very restless keeps trying to get out of bed. - Thank you- Muang [phone] Patient vitals 108/[address] Khoury aware. New orders to dc Lisinopril and recheck BP in one hour. Will continue to monitor.
--- NOTE | 2021-02-19 14:52 | NUR ---
Rechecked patient vital signs per Dr. Khoury. Notified him of results. PAGER ID: [phone] MESSAGE: [phone]- Florian Coffey- Patient sitting up at side of bed watching tv. 120/77 hr 136, 116/70 HR 138 still Afib RVR per tele. - Thank you- Silviano [phone]
[2021-02-19 14:53] VITALS: BP 120/77
--- NOTE | 2021-02-19 15:25 | NUR ---
Was in room with patient assisting him back to lying in bed when received notification that patient back in sinus rhythm. Dr Khoury notified. PAGER ID: [phone] MESSAGE: [id number]- Florian Coffey- received call from tele patient is now in SR. ok to still dc or hold? son to be here after he gets off work at 1700. Thank you- Silviano [phone]
--- NOTE | 2021-02-19 16:23 | NUR ---
Dr. Peng fontenot for patient to [place]. Tele Aurelio reports patient is now at HR 82 in Sinus Rhythm. Patient ambulated on floor with SBA with no s/s of apparent distress and tolerated well. Patient is up and chair drinking water and orange juice. Fall tabs attached and working properly. Will continue to monitor.
--- NOTE | 2021-02-19 17:19 | NUR ---
Patient grandson MATILDE Arreguin here to transport patient back to [facility] assisted living. Discussed discharge instructions with patient and grandson as patient will need reinforcement teaching due to hx of dementia. Rodríguez verbalized understanding and all questions answered. Patient did not have belongings in room. Patient was dc'd in wheelchair accompanied by and Rodríguez transporting home.
== END 2021-02-19 16:55 | disposition home or self-care (01) ==
LOC: ER 09:03 → ED HOLD 16:36 → ORTHO 4S 22:15
PROVIDERS: ADMIT Family Medicine; ATTEND Family Medicine
DX: S06.6X9A Traumatic subarachnoid hemorrhage with loss of consciousness of unspecified duration, initial encounter (principal); S01.01XA Laceration without foreign body of scalp, initial encounter; F02.80 Dementia in other diseases classified elsewhere, unspecified severity, without behavioral disturbance, psychotic disturbance, mood disturbance, and anxiety; G30.9 Alzheimer's disease, unspecified; I12.9 Hypertensive chronic kidney disease with stage 1 through stage 4 chronic kidney disease, or unspecified chronic kidney disease; N18.9 Chronic kidney disease, unspecified; D64.9 Anemia, unspecified; F32.9 Major depressive disorder, single episode, unspecified; F41.9 Anxiety disorder, unspecified; Z23 Encounter for immunization; Z86.73 Personal history of transient ischemic attack (TIA), and cerebral infarction without residual deficits; Z79.82 Long term (current) use of aspirin; Z79.899 Other long term (current) drug therapy; W18.39XA Other fall on same level, initial encounter; Y93.89 Activity, other specified; Y92.89 Other specified places as the place of occurrence of the external cause
CPT/HCPCS: 12002; 36415; 70450; 71045; 72125; 80048; 80053; 81003; 83735; 84484; 85025; 85027; 85610; 87081; 90471; 93005; 96360; 96361; 97116; 97161; 97530; 99291; G0378; J7030; 90715

== ENCOUNTER 2021-03-06 09:43 | Emergency (ER) | payer OTHER, MEDICARE ==
[~2021-03-06 09:43] MED LIST changes: +CHOL20002 PO; +CYAN-34 PO; +DONE-46 PO; -LEVO500T2 PO; +LISI20TA28 PO; +TRAZ-251 PO; +ZIPR20CA12 PO
[2021-03-06] MEDS ORDERED: ASPI81TA52 PO (10:02)
[2021-03-06 13:36] VITALS: BP 126/70
== END 2021-03-06 14:52 | disposition home or self-care (01) ==
LOC: ER 09:43
DX: S01.81XA Laceration without foreign body of other part of head, initial encounter (principal); F41.9 Anxiety disorder, unspecified; F32.9 Major depressive disorder, single episode, unspecified; Z86.73 Personal history of transient ischemic attack (TIA), and cerebral infarction without residual deficits; Z60.2 Problems related to living alone; Z79.82 Long term (current) use of aspirin; Z79.899 Other long term (current) drug therapy; W19.XXXA Unspecified fall, initial encounter; Y93.89 Activity, other specified; Y92.89 Other specified places as the place of occurrence of the external cause; Y99.8 Other external cause status
CPT/HCPCS: 12002; 12011; 70450; 72125; 99285